=== PATIENT | female | born 2000 | race Caucasian/White ===

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

== ENCOUNTER 2021-04-18 16:20 | Emergency (ER) | payer OTHER | END 2021-04-18 17:33 | disposition home or self-care (01) | LOC: ED 16:20 | DX: R07.9 Chest pain, unspecified (principal) ==